=== PATIENT | male | born 1985 | race African-American/Black ===

== ENCOUNTER 2017-04-14 15:57 | Inpatient (IN) | payer MEDICAID ==
[~2017-04-14] VITALS: Ht 177.8 cm; Wt 81.6 kg
[2017-04-14] MEDS ORDERED: SODIUM CHLORIDE 0.9% 1,000 ML IV SCH (17:49)
[2017-04-14] MEDS ORDERED: ACETAMINOPHEN 500 MG TAB PO PRN (18:00)
[2017-04-14] MEDS ORDERED: LORazepam 0.5 MG TAB PO PRN (18:00)
[2017-04-14] MEDS ORDERED: MORPHINE SULFATE 4 MG/ML SYRG IV PRN (18:00)
[2017-04-14] MEDS ORDERED: TEMAZEPAM 15 MG CAP PO PRN (18:00)
[2017-04-14] MEDS ORDERED: PROMETHAZINE HCL 25 MG/ML 1ML IV PRN (18:00)
[2017-04-14] MEDS ORDERED: HYDROcodone-ACET 5/325MG TAB PO PRN (18:00)
[2017-04-14 18:09] LABS: Basophils # (auto) 0 uL; Basophils % (auto) 0.4 % (0.0-2.0); CONDITION Y; Eosinophils # (auto) 0.1 uL; Eosinophils % (auto) 1.6 % (0.0-7.0); Hemoglobin 14.8 g/dL (13.5-17.5); Lymphocytes # (auto) 2.8 uL; Lymphocytes % (auto) 38.9 % (10.0-50.0); Mean Corpuscular Hemoglobin 31.5 pg (28.0-32.0); Mean Corpuscular Hgb Conc. 33.6 g/dL (32.0-36.0); Mean Corpuscular Volume 93.6 fL (80.0-100.0); Mean Platelet Volume 8.1 fL (7.4-10.4); Monocytes # (auto) 0.6 uL; Monocytes % (auto) 8.3 % (0.0-12.0); Neutrophils # (auto) 3.7 uL; Neutrophils % (auto) 50.8 % (37.0-80.0); Platelet Count (auto) 272 10^3/uL (140-450); Red Cell Distribution Width 13.4 % (11.6-16.0); White Blood Cell 7.3 10^3/uL (4.4-10.8)
[2017-04-14 18:22] LABS: BUN/Creatinine Ratio 12.2; Calcium 9.2 mg/dL (8.5-10.1); Potassium 3.6 mmol/L (3.5-5.1)
[2017-04-14 18:24] LABS: Bilirubin, Total 0.3 mg/dL (0.2-1.0)
[2017-04-14 18:35] VITALS: BP 112/62
== END 2017-04-14 19:22 | disposition left against medical advice (07) | DRG 500 ==
LOC: ER 16:01 → OVERFLOW 16:02
PROVIDERS: ADMIT Internal Medicine; ATTEND Internal Medicine
DX: C62.92 Malignant neoplasm of left testis, unspecified whether descended or undescended (principal); F41.9 Anxiety disorder, unspecified; G47.00 Insomnia, unspecified; Z53.21 Procedure and treatment not carried out due to patient leaving prior to being seen by health care provider; Z80.43 Family history of malignant neoplasm of testis
CPT/HCPCS: 36415; 71010; 76870; 80053; 82105; 84443; 84702; 85025

== ENCOUNTER 2017-08-22 08:26 | Emergency (ER) | payer MEDICAID ==
[~2017-08-22] VITALS: Ht 177.8 cm; Wt 89.8 kg
[2017-08-22 09:38] VITALS: BP 151/86
== END 2017-08-22 09:58 | disposition home or self-care (01) ==
LOC: ER 08:26
DX: J20.9 Acute bronchitis, unspecified (principal); Z85.47 Personal history of malignant neoplasm of testis

== ENCOUNTER 2018-07-21 11:51 | Emergency (ER) | payer MEDICAID ==
[~2018-07-21] VITALS: Ht 180.3 cm; Wt 92.1 kg
[2018-07-21 12:22] LABS: Basophils # (auto) 0 uL; Basophils % (auto) 0.9 % (0.0-2.0); Eosinophils # (auto) 0.1 uL; Eosinophils % (auto) 2.2 % (0.0-7.0); Hematocrit 39.2 % (41.0-53.0); Hemoglobin 13.4 g/dL (13.5-17.5); Lymphocytes # (auto) 0.8 uL; Lymphocytes % (auto) 22.3 % (10.0-50.0); Mean Corpuscular Hemoglobin 31.5 pg (28.0-32.0); Mean Corpuscular Hgb Conc. 34.2 g/dL (32.0-36.0); Monocytes # (auto) 0.5 uL; Monocytes % (auto) 12.7 % (0.0-12.0); Neutrophils # (auto) 2.3 uL; Neutrophils % (auto) 61.9 % (37.0-80.0); Platelet Count (auto) 260 10^3/uL (140-450); Red Blood Cells 4.26 10^6/uL (4.5-5.90); Red Cell Distribution Width 12.3 % (11.8-14.3); White Blood Cell 3.6 10^3/uL (4.4-10.8)
[2018-07-21] MEDS ORDERED: HYDROcodone-ACET 10/325MG TAB PO ONE (12:30)
[2018-07-21 12:53] LABS: Albumin 3.5 g/dL (3.4-5.0); Calcium 8.7 mg/dL (8.5-10.1); Potassium 3.9 mmol/L (3.5-5.1)
[2018-07-21 12:56] LABS: BUN/Creatinine Ratio 8.8; Bilirubin, Total 0.5 mg/dL (0.2-1.0); Total Protein 8.6 g/dL (6.4-8.2)
[2018-07-21 13:02] VITALS: BP 134/81
[2018-07-21 13:52] LABS: Urine Bacteria NONE SEEN /hpf (None Seen); Urine Blood Negative /uL (Negative); Urine Specific Gravity 1.018 (1.001-1.035); Urine WBC 1 /hpf (0 - 3)
== END 2018-07-21 14:45 | disposition left against medical advice (07) ==
LOC: ER 11:51
DX: N13.30 Unspecified hydronephrosis (principal); N50.9 Disorder of male genital organs, unspecified; Z53.29 Procedure and treatment not carried out because of patient's decision for other reasons
CPT/HCPCS: 36415; 74176; 76870; 80053; 81001; 82150; 83690; 85025

== ENCOUNTER 2018-08-14 14:53 | Emergency (ER) | payer MEDICAID ==
[~2018-08-14] VITALS: Ht 180.3 cm; Wt 86.6 kg
[2018-08-14] MEDS: HYDROcodone-ACET 10/325MG TAB PO ONE ×2 (16:00→18:06)
[2018-08-14] MEDS ORDERED: HYDROmorphone HCL 2 MG/ML VL IM ONE (16:15)
[2018-08-14] MEDS ORDERED: ONDANSETRON ODT 4 MG TAB PO ONE (16:15)
[2018-08-14 16:17] VITALS: BP 148/86
[2018-08-14 16:35] LABS: Basophils # (auto) 0 uL; Basophils % (auto) 0.4 % (0.0-2.0); Eosinophils # (auto) 0.2 uL; Eosinophils % (auto) 2.8 % (0.0-7.0); Hematocrit 36.9 % (41.0-53.0); Hemoglobin 12.7 g/dL (13.5-17.5); Lymphocytes # (auto) 1.5 uL; Lymphocytes % (auto) 19.1 % (10.0-50.0); Mean Corpuscular Hemoglobin 31.3 pg (28.0-32.0); Mean Corpuscular Hgb Conc. 34.4 g/dL (32.0-36.0); Mean Corpuscular Volume 90.9 fL (80.0-100.0); Monocytes # (auto) 0.7 uL; Monocytes % (auto) 9.5 % (0.0-12.0); Neutrophils # (auto) 5.3 uL; Neutrophils % (auto) 68.2 % (37.0-80.0); Nucleated Red Blood Cells % 0.1 %; Platelet Count (auto) 313 10^3/uL (140-450); Red Blood Cells 4.06 10^6/uL (4.5-5.90); Red Cell Distribution Width 12.3 % (11.8-14.3); White Blood Cell 7.8 10^3/uL (4.4-10.8)
[2018-08-14 16:49] LABS: Albumin 3.7 g/dL (3.4-5.0); Calcium 8.8 mg/dL (8.5-10.1); Potassium 3.6 mmol/L (3.5-5.1)
[2018-08-14 16:51] LABS: BUN/Creatinine Ratio 11.3
[2018-08-14 16:53] LABS: Bilirubin, Total 0.5 mg/dL (0.2-1.0); Total Protein 9.9 g/dL (6.4-8.2)
[2018-08-14 18:08] LABS: Urine Bacteria MOD /hpf (None Seen); Urine Blood 2+ /uL (Negative); Urine Hyaline Cast FEW /lpf (0 - 2); Urine Mucus FEW (None Seen); Urine Specific Gravity 1.018 (1.001-1.035); Urine WBC 135 /hpf (0 - 3); Urine WBC Clumps PRESENT /hpf (None Seen)
== END 2018-08-14 18:31 | disposition home or self-care (01) ==
LOC: ER 14:53
DX: R10.9 Unspecified abdominal pain (principal); F12.10 Cannabis abuse, uncomplicated
CPT/HCPCS: 36415; 80053; 81001; 83605; 85025; 87040; 87086; 87088; 87186; 96372; 99283; J1170

== ENCOUNTER 2018-11-17 09:21 | Emergency (ER) | payer MEDICAID ==
[~2018-11-17] VITALS: Ht 180.3 cm; Wt 79.8 kg
[2018-11-17 09:30] VITALS: BP 136/92
[2018-11-17] MEDS ORDERED: cefTRIAXone SOD 1,000 MG VL IM ONE (10:00)
[2018-11-17 10:24] LABS: Urine Bacteria FEW /hpf (None Seen); Urine Blood 1+ /uL (Negative); Urine Specific Gravity 1.017 (1.001-1.035); Urine WBC 562 /hpf (0 - 3); Urine WBC Clumps PRESENT /hpf (None Seen)
== END 2018-11-17 10:23 | disposition home or self-care (01) ==
LOC: ER 09:30
DX: N39.0 Urinary tract infection, site not specified (principal); F12.10 Cannabis abuse, uncomplicated
CPT/HCPCS: 81001; 96372; 99284; J0696

== ENCOUNTER 2018-12-08 15:26 | Emergency (ER) | payer MEDICAID ==
[~2018-12-08] VITALS: Ht 180.3 cm; Wt 84.4 kg
[2018-12-08 15:35] VITALS: BP 130/82
== END 2018-12-08 18:26 | disposition left against medical advice (07) ==
LOC: ER 15:37
DX: Z46.6 Encounter for fitting and adjustment of urinary device (principal); Z53.21 Procedure and treatment not carried out due to patient leaving prior to being seen by health care provider

== ENCOUNTER 2018-12-11 08:39 | Emergency (ER) | payer MEDICAID ==
[~2018-12-11] VITALS: Ht 180.3 cm; Wt 84.4 kg
[2018-12-11 09:14] VITALS: BP 121/69
== END 2018-12-11 09:36 | disposition home or self-care (01) ==
LOC: ER 08:39
DX: K94.00 Colostomy complication, unspecified (principal); Z76.0 Encounter for issue of repeat prescription

== ENCOUNTER 2018-12-23 19:10 | Inpatient (IN) | payer MEDICAID ==
[~2018-12-23] VITALS: Ht 180.3 cm; Wt 82.5 kg
[2018-12-23 20:58] LABS: Urine Bacteria FEW /hpf (None Seen); Urine Blood Negative /uL (Negative); Urine Mucus FEW (None Seen); Urine Specific Gravity 1.025 (1.001-1.035); Urine WBC 6 /hpf (0 - 3)
[2018-12-23] MEDS ORDERED: cefTRIAXone 1GM/50ML D5W 50 ML IV ONE (21:15)
[2018-12-23] MEDS ORDERED: SODIUM CHLORIDE 0.9% 1,000 ML IV ONE ×2 (21:15)
[2018-12-23 21:54] LABS: Hematocrit 28.7 % (41.0-53.0); Hemoglobin 9.8 g/dL (13.5-17.5); Mean Corpuscular Hemoglobin 30.9 pg (28.0-32.0); Mean Corpuscular Hgb Conc. 34.1 g/dL (32.0-36.0); Mean Corpuscular Volume 90.5 fL (80.0-100.0); Platelet Count (auto) 268 10^3/uL (140-450); Red Blood Cells 3.17 10^6/uL (4.5-5.90); Red Cell Distribution Width 19.2 % (11.8-14.3); White Blood Cell 3.5 10^3/uL (4.4-10.8)
[2018-12-23 21:57] LABS: Basophils % (manual) 0 (0.0-2.0); Blast Cells 0; Eosinophils % (manual) 0 (0-7); Metamyelocytes % 0; Myelocytes % 0; Promyelocytes % 0; Reactive Lymphocytes 0
[2018-12-23 22:14] LABS: Albumin 3.3 g/dL (3.4-5.0); Calcium 9.4 mg/dL (8.5-10.1)
[2018-12-23 22:16] LABS: BUN/Creatinine Ratio 14.2
[2018-12-23 22:19] LABS: Bilirubin, Total 0.3 mg/dL (0.2-1.0); Total Protein 8.3 g/dL (6.4-8.2)
[2018-12-23 22:24] LABS: INR 0.93 (0.9-1.15); Partial Thromboplastin Time 26.9 sec (23.78-33.04)
[2018-12-23 22:39] LABS: Band Neutrophils % (manual) 13; Lymphocytes % (manual) 11 (10.0-50.0); Monocytes % (manual) 17 (0-12)
[2018-12-23] MEDS ORDERED: MORPHINE SULF INJ 2 MG/ML SYRINGE 1ML IV ONE (23:15)
[2018-12-23] MEDS ORDERED: ONDANSETRON HCL 4 MG/2 ML VIAL IV ONE (23:15)
[2018-12-23] MEDS ORDERED: HYDROcodone-ACET 5/325MG TAB PO PRN (23:30)
[2018-12-23] MEDS ORDERED: ACETAMINOPHEN 325 MG TAB PO PRN (23:30)
[2018-12-23] MEDS ORDERED: ONDANSETRON HCL 4 MG/2 ML VIAL IV PRN (23:30)
[2018-12-23] MEDS ORDERED: PANTOPRAZOLE 40 MG/10 ML VIAL IV ONE (23:30)
--- NOTE | 2018-12-23 23:55 | NUR ---
MS admit from ER ADELA HERBERT admitted to tele/MS. Patient oriented to Cally Turner, primary RN, unit, room, bed, and unit policies regarding patient care and visiting hours. Patient weighed by bedscale and encouraged to call if they need something. All questions and concerns addressed, patient verbalized understanding.
[2018-12-24] VITALS (8 sets, daily range): BP systolic 107–145; BP diastolic 60–84
[2018-12-24] MEDS: SODIUM CHLORIDE 0.9% 1,000 ML IV SCH ×3 (00:34→23:02)
[2018-12-24] MEDS: metroNIDAZOLE 500MG/100ML 100 ML IV SCH ×4 (00:35→22:27)
[2018-12-24] MEDS: PANTOPRAZOLE 40 MG/10 ML VIAL IV SCH (06:19)
[2018-12-24 06:48] LABS: Hemoglobin 8.7 g/dL (13.5-17.5); Mean Corpuscular Hemoglobin 31.5 pg (28.0-32.0); Mean Corpuscular Hgb Conc. 34.7 g/dL (32.0-36.0); Mean Corpuscular Volume 90.6 fL (80.0-100.0); Platelet Count (auto) 233 10^3/uL (140-450); Red Blood Cells 2.76 10^6/uL (4.5-5.90); Red Cell Distribution Width 19.4 % (11.8-14.3); White Blood Cell 2.8 10^3/uL (4.4-10.8)
[2018-12-24 07:01] LABS: Calcium 8.5 mg/dL (8.5-10.1); Potassium 3.9 mmol/L (3.5-5.1)
[2018-12-24 07:04] LABS: BUN/Creatinine Ratio 13.2
[2018-12-24 07:20] LABS: Basophils % (manual) 0 (0.0-2.0); Blast Cells 0; Metamyelocytes % 0; Myelocytes % 0; Promyelocytes % 0; Reactive Lymphocytes 0
[2018-12-24] MEDS ORDERED: POVIDONE IODINE 10 % TOPICAL OINT 30GM TOP ONE (07:31)
--- NOTE | 2018-12-24 08:10 | NUR ---
PT OFF UNIT TO PREOP VIA BED. NO SS/ OF ACUTE DISTRESS NOTED. VS: 98.2, 80, 18, 108/60, 100% ON RA.
[2018-12-24] MEDS ORDERED: ceFAZolin 1GM/50ML 50 ML IV ONE (08:23)
[2018-12-24] MEDS ORDERED: LIDOCAINE 1% HCL (LOCAL ANESTH.) INJ 20ML MDV ONE (08:47)
[2018-12-24] MEDS ORDERED: SUCCINYLCHOLINE CHLORIDE 20 MG/ML 10ML VIAL IV ONE (08:48)
[2018-12-24] MEDS ORDERED: MIDAZOLAM HCL 1MG/1ML-2 ML VIAL IV ONE (08:52)
[2018-12-24] MEDS ORDERED: ROCURONIUM 10MG/ML 10ML VIAL IV ONE (08:52)
[2018-12-24] MEDS ORDERED: PROPOFOL 10 MG/ML 20 ML IV ONE (08:53)
[2018-12-24] MEDS ORDERED: fentaNYL CITRATE 100 MCG/2 ML VL IV ONE (09:01)
[2018-12-24] MEDS ORDERED: ONDANSETRON HCL 4 MG/2 ML VIAL IV ONE (09:15)
[2018-12-24] MEDS ORDERED: NALOXONE HCL 0.4 MG/ML VIAL IV PRN (09:15)
[2018-12-24] MEDS ORDERED: HYDROmorphone HCL 2 MG/ML VL IV PRN (09:15)
[2018-12-24 09:18] LABS: Band Neutrophils % (manual) 1; Lymphocytes % (manual) 35 (10.0-50.0)
[2018-12-24 09:19] LABS: Eosinophils % (manual) 2 (0-7); Monocytes % (manual) 22 (0-12)
[2018-12-24] MEDS ORDERED: GLYCOPYRROLATE 0.2 MG/ML 1ML VIAL IV ONE (09:25)
[2018-12-24] MEDS ORDERED: NEOSTIGMINE 1 MG/ML INJ (10mg/10ML VIAL) IV ONE (09:25)
[2018-12-24] MEDS: HYDROmorphone HCL 2 MG/ML VL IV PRN ×4 (10:04→16:18)
--- NOTE | 2018-12-24 11:05 | NUR ---
PT BACK TO ROOM. S/S LAP APPENDECTOMY . 3 DRESSING TO MID ABD INTACT NO BLEEDING NOTED. ABD BINDER IN PLACE. VS: 98.4, 78, 21, 132/74, 98% ON RA. WILL CONTINUE TO MONITOR.
--- NOTE | 2018-12-24 11:15 | NUR ---
PT C/O PAIN TO ABD 03/13, AND ASKED FOR PAIN MED. I WENT TO MED ROOM TO GET MORPHINE, WHEN I CAME BACK, HIS MOM STATED HE TOOK A NORCO 10-325 FROM HIS POCKET. EDUCATED PT AND FAMILY, HE IS NOT ALLOWED TO TAKE ANY HOME MED DURING HOSPITAL STAY. VERBALIZED UNDERSTANDING. PT STATED HE ONLY HAS ONE NORCO IN HIS POCKED.
--- NOTE | 2018-12-24 12:00 | NUR ---
DR. TRONCOSO AT BEDSIDE. NEW ORDER TO CHANGE NORCO 5-325MG TO NORCO 10-325. WILL CARRY OUT ORDER .
[2018-12-24] MEDS ORDERED: HYDROcodone-ACET 10/325MG TAB PO PRN (12:15)
--- NOTE | 2018-12-24 19:23 | NUR ---
CARE ENDORSED TO [place] VEGA.
--- NOTE | 2018-12-24 19:30 | NUR ---
Opening Shift Note Assumed care of patient, awake and alert oriented x4. No S/S of distress/SOB noted. Dressings on abdomen are dry and intact, abdominal binder applied and patient instructed to use incentive spirometer which is at the bedside. Bed is in lowest locked position with bed rails up x2 and call light is within reach of the patient. Instructed on POC and to call for assist PRN.
[2018-12-24] MEDS: MORPHINE SULFATE 4 MG/ML SYR/VIAL IV PRN (20:27)
[2018-12-24] MEDS ORDERED: cefTRIAXone 1GM/50ML D5W 50 ML IV SCH (21:00)
--- NOTE | 2018-12-24 22:44 | NUR ---
Dr Nichols called regarding sleeping pill: Patient requested sleeping pill. Called Dr. Nichlos about patients request, ordered Ambien 5mg PO at night for insomnia for patient. To place and carry out orders.
[2018-12-24] MEDS ORDERED: ZOLPIDEM TARTRATE 5 MG TAB PO PRN (23:00)
--- NOTE | 2018-12-25 04:00 | NUR ---
Patient became agitated: Patient became agitated and irritated this morning stating that "Morphine is not working for me! Why haven't you called the doctor to get me Dilaudid! You haven't done anything for me. I want to speak with someone." Notified charge nurse that patient would like to speak with them and to call [facility] to notify about patients requesting change in pain medication.
[2018-12-25] MEDS: MORPHINE SULFATE 4 MG/ML SYR/VIAL IV PRN (04:11)
--- NOTE | 2018-12-25 04:15 | NUR ---
Dr Nichols called, new orders received: Dr. Nichols called and notified about patients pain and request to have Dilaudid. Dr. Nichols discontinued morphine and ordered Dilaudid 0.5 mg every 4 hours for severe pain. To place orders.
--- NOTE | 2018-12-25 04:20 | NUR ---
Patient report given to Niko VEGA.
--- NOTE | 2018-12-25 04:21 | NUR ---
Received pt from [facility]. no new symptoms. Pt exhibits no s/s of distress nor pain. Dressing clean, dry, and intact. Will monitor q 1 hr
[2018-12-25] MEDS: HYDROmorphone HCL 2 MG/ML VL IV PRN ×3 (04:43→13:46)
[2018-12-25 05:00] VITALS: BP 136/90
[2018-12-25] MEDS: metroNIDAZOLE 500MG/100ML 100 ML IV SCH ×2 (06:18→13:46)
[2018-12-25] MEDS: PANTOPRAZOLE 40 MG/10 ML VIAL IV SCH (06:19)
--- NOTE | 2018-12-25 07:46 | NUR ---
endorsed care to day shift nurse.
--- NOTE | 2018-12-25 08:30 | NUR ---
PATIENT NOT IN [facility] PATIENT MEDICATIONS UNABLE TO BE REMOVED FROM [facility] CALLED PHARMACY AND SPOKE TO [place] PATIENT DUE FOR 0.5 DILAUDID AT 0843 INSTRUCTED BY PHARMACY TO COME PHYSICALLY RATINGS ANALYST PAIN MEDIATION FROM PHARMACY
[2018-12-25 08:31] VITALS: BP 132/81
--- NOTE | 2018-12-25 08:35 | NUR ---
MEDICATION PICKED UP FROM PHARMACY WILL MEDICATE FOR PAIN PER EMAR /M.D ORDERS
[2018-12-25] MEDS: SODIUM CHLORIDE 0.9% 1,000 ML IV SCH (09:41)
--- NOTE | 2018-12-25 10:35 | NUR ---
DR. HOWARD PAGED PER DR. TRONCOSO TO SEE IF PATIENT IS CLEARED FOR D/C WILL AWAIT M.D. CALL BACK
[2018-12-25 12:16] VITALS: BP 128/83
--- NOTE | 2018-12-25 13:27 | NUR ---
CALLED PHARMACY SPOKE TO NO INFORMED NO PATIENT'S MEDICATIONS ARE STILL NOT AVAILABLE TO BE PULLED FROM [facility] SHE STATED PATIENT'S PAIN MEDICATION AND FLAGYL WILL BE DELIVERED BY PHARMACIST SOON POSSIBLE
--- NOTE | 2018-12-25 14:47 | NUR ---
OVERRIDE MEDICATION ADMINISTERED ONDANSETRON 4 MG PER M.D. ORDERS/EMAR PATIENTS MEDICATIONS STILL NOT SHOWING IN [facility] AWARE OF SITUATION
[2018-12-25 15:58] VITALS: BP 128/83
[2018-12-25 16:56] VITALS: BP 149/83
--- NOTE | 2018-12-25 17:33 | NUR ---
DISCHARGE Discharge instructions given as ordered. Encourage to follow up with PCP as instructed. All questions and concerns addressed. Patient verbalized understanding. IV removed with catheter intact, pressure dressing applied. Nephrostomy tube left in place; patient admitted with nephrostomy. Patient taken to vehicle via wheelchair with all personal belongings, accompanied by staff and family member. No distress noted at time of departure.
== END 2018-12-25 17:30 | disposition home or self-care (01) | DRG 234 ==
LOC: ER 19:10 → OVERFLOW 23:23 → EAST 23:40
PROVIDERS: ADMIT Nurse Practitioner; ATTEND Internal Medicine
PROC: 0DTJ4ZZ Resection of Appendix, Percutaneous Endoscopic Approach (ICD-10-PCS; principal; 2018-12-24 08:48)
DX: K35.80 Unspecified acute appendicitis (principal); N17.0 Acute kidney failure with tubular necrosis; D70.9 Neutropenia, unspecified; N18.3 Chronic kidney disease, stage 3 (moderate); D64.9 Anemia, unspecified; R05 Cough; F12.90 Cannabis use, unspecified, uncomplicated; Z80.43 Family history of malignant neoplasm of testis; Z85.47 Personal history of malignant neoplasm of testis; Z90.79 Acquired absence of other genital organ(s); Z93.6 Other artificial openings of urinary tract status; Z92.21 Personal history of antineoplastic chemotherapy; Z90.49 Acquired absence of other specified parts of digestive tract
CPT/HCPCS: 36415; 71045; 74176; 80048; 80053; 81001; 82150; 83690; 85007; 85027; 85610; 85730; 86850; 86900; 86901; 93005; 96361; 96365; 96375; C9113; G0378; J0330; J0690; J0696; J2001; J2250; J2405; J2704; J3490

== ENCOUNTER 2018-12-26 07:02 | Emergency (ER) | payer MEDICAID ==
[~2018-12-26] VITALS: Ht 182.9 cm; Wt 90.7 kg
[2018-12-26] MEDS ORDERED: SODIUM CHLORIDE 0.9% 1,000 ML IVB ONE (07:45)
[2018-12-26] MEDS ORDERED: HYDROmorphone HCL 2 MG/ML VL IV ONE ×2 (07:45→13:45)
[2018-12-26] MEDS ORDERED: PROMETHAZINE HCL 25 MG/ML 1ML IV PRN (07:45)
[2018-12-26] MEDS ORDERED: metroNIDAZOLE 500MG/100ML 100 ML IV ONE (07:45)
[2018-12-26] MEDS ORDERED: cefTRIAXone 1GM/50ML D5W 50 ML IV ONE (07:45)
[2018-12-26 07:46] LABS: Hematocrit 27.5 % (41.0-53.0); Hemoglobin 9.6 g/dL (13.5-17.5); Mean Corpuscular Hemoglobin 31.1 pg (28.0-32.0); Mean Corpuscular Hgb Conc. 34.9 g/dL (32.0-36.0); Mean Corpuscular Volume 89.2 fL (80.0-100.0); Platelet Count (auto) 319 10^3/uL (140-450); Red Blood Cells 3.08 10^6/uL (4.5-5.90); Red Cell Distribution Width 18.6 % (11.8-14.3); White Blood Cell 3.3 10^3/uL (4.4-10.8)
[2018-12-26 07:57] LABS: Basophils % (manual) 0 (0.0-2.0); Blast Cells 0; Eosinophils % (manual) 0 (0-7); Metamyelocytes % 0; Promyelocytes % 0; Reactive Lymphocytes 0
[2018-12-26 08:06] LABS: Albumin 3.5 g/dL (3.4-5.0); Calcium 9.2 mg/dL (8.5-10.1); Potassium 3.7 mmol/L (3.5-5.1)
[2018-12-26 08:11] LABS: BUN/Creatinine Ratio 8.2; Bilirubin, Total 0.3 mg/dL (0.2-1.0); Total Protein 7.9 g/dL (6.4-8.2)
[2018-12-26 08:13] LABS: INR 1.03 (0.9-1.15); Magnesium 1.7 mg/dL (1.6-2.6); Partial Thromboplastin Time 26.7 sec (23.78-33.04)
[2018-12-26 08:49] LABS: Band Neutrophils % (manual) 1; Lymphocytes % (manual) 23 (10.0-50.0); Monocytes % (manual) 13 (0-12); Myelocytes % 1
[2018-12-26] MEDS ORDERED: IOHEXOL 300 MG/ML 100ML BOTTLE IJ ONE ×2 (08:52→09:07)
[2018-12-26 10:26] VITALS: BP 150/72
[2018-12-26 11:33] LABS: Urine Bacteria NONE SEEN /hpf (None Seen); Urine Blood Negative /uL (Negative); Urine Specific Gravity 1.026 (1.001-1.035); Urine WBC 2 /hpf (0 - 3)
[2018-12-26] MEDS ORDERED: PROMETHAZINE HCL 25 MG/ML 1ML IV ONE (13:45)
== END 2018-12-26 14:08 | disposition home or self-care (01) ==
LOC: EDBD 07:02 → ER 07:02
DX: G89.18 Other acute postprocedural pain (principal); R10.11 Right upper quadrant pain; R10.31 Right lower quadrant pain; D64.9 Anemia, unspecified; F12.90 Cannabis use, unspecified, uncomplicated; Z90.49 Acquired absence of other specified parts of digestive tract; Z85.47 Personal history of malignant neoplasm of testis
CPT/HCPCS: 36415; 71046; 74177; 80053; 81001; 83690; 83735; 85007; 85027; 85610; 85730; 96365; 96368; 96375; 96376; 99284; J0696; J1170; J2550; J3490; J7030; Q9967

== ENCOUNTER 2019-01-05 08:55 | Emergency (ER) | payer MEDICAID ==
[~2019-01-05] VITALS: Ht 180.3 cm; Wt 83.5 kg
[2019-01-05 09:09] VITALS: BP 119/72
== END 2019-01-05 09:31 | disposition home or self-care (01) ==
LOC: ER 08:55
DX: Z48.817 Encounter for surgical aftercare following surgery on the skin and subcutaneous tissue (principal)